=== PATIENT | male | born 1995 | race Caucasian/White ===

== ENCOUNTER 2017-12-16 16:43 | Emergency (ER) | payer BC, OTHER ==
[~2017-12-16] VITALS: Ht 177.8 cm; Wt 63.5 kg
== END 2017-12-16 18:34 | disposition home or self-care (01) ==
LOC: ED 16:43
DX: S93.401A Sprain of unspecified ligament of right ankle, initial encounter (principal); S20.211A Contusion of right front wall of thorax, initial encounter; W55.29XA Other contact with cow, initial encounter; Y93.79 Activity, other specified sports and athletics
CPT/HCPCS: 71046; 73610; 80053; 81001; 85025; 99283